=== PATIENT | male | born 1960 | race Caucasian/White ===

== ENCOUNTER 2018-01-16 17:03 | Inpatient (IN) | payer MEDICARE ==
[~2018-01-16] VITALS: Ht 182.9 cm; Wt 91.6 kg
[2018-01-16] MEDS ORDERED: TEMAZEPAM 7.5 MG CAPSULE PO PRN (17:30)
[2018-01-16] MEDS ORDERED: ACETAMINOPHEN 325 MG TABLET PO PRN (17:30)
[2018-01-16] MEDS ORDERED: clonazePAM 0.5 MG TABLET PO PRN (17:30)
[2018-01-16] MEDS ORDERED: MAGNESIUM HYDROXIDE 30 ML UDC PO PRN (17:30)
[2018-01-16] MEDS ORDERED: MAG HYDROX/AL HYDROX/SIMETH 30 ML UDC PO PRN (17:30)
--- NOTE | 2018-01-16 18:00 | NUR ---
GPS/RN-NOTES ADMITTED 58 Y.O MALE PATIENT FROM THE [facility]. PATIENT ON 5150 HOLD FOR DTS/DTO UNDER THE CARE OF DR. MARIA AND DR. RAMIREZ. CHARGE NURSE MADE DR. MARIA AWARE OF PATIENT ADMISSION. PATIENT WAS UNABLE TO ASSES DUE TO PATIENT WAS TOO SEDATED ON ARRIVAL,BREATHING EVEN AND NONLABORED/NO ACUTE DISTRESS NOTED. CONTRABAND DONE,UNABLE TO DO BODY ASSESSMENT ON THE PATIENT. WILL ENDORSE TO INCOMING NURSE FOR CONTINUITY OF CARE AND THE ADMISSION PROCESS.NO FAMILY ON FILE TO BE NOTIFIED FOR THE ADMISSION.
--- NOTE | 2018-01-16 22:50 | NUR ---
PT REFUSED SKIN/BODY ASSESSMENT. PT STATES "I'M OKAY, I DON'T NEED TO BE CHECKED". WILL ENDORSE TO NEXT SHIFT NURSE OF PT'S REFUSAL.
[2018-01-17 08:22] VITALS: BP 129/76
--- NOTE | 2018-01-17 11:57 | NUR ---
GPS/RN-NOTES PATIENT REFUSED LAB DRAW,DESPITE EXPLAINING RISK AND BENEFITS. PATIENT GETS ANGRY AND ARGUMENTATIVE WITH THE LAB STAFF. X3 ATTEMPT
--- NOTE | 2018-01-17 14:21 | NUR ---
Initial Discharge Plan: Pts address on face sheet is [address] [place] [phone] and phone # is . Pt does not have an emergency personnel specialist on his face sheet, nor does he want anyone notified of his whereabouts. When asked about discharge plan, pt stated, "I want you to let me leave from here and its none of your business what I do." SW will continue to revisit discharge plan throughout pts stay at the hospital to assist pt in discharging appropriately and safely.
[2018-01-17 20:00] VITALS: BP 127/71
[2018-01-17] MEDS ORDERED: OLANZAPINE 5 MG/TAB.RAPDIS PO SCH (22:00)
[2018-01-18 08:00] VITALS: BP 136/92
[2018-01-18] MEDS ORDERED: OLANZAPINE 10 MG VIAL IM ONE (11:00)
[2018-01-18] MEDS ORDERED: LORAZEPAM INJ 2 MG/ML VIAL IM ONE (11:00)
--- NOTE | 2018-01-18 11:00 | NUR ---
GPS/RN-NOTES PATIENT WALK IN THE NURSING STATION SCREAMING AND YELLING WITH THE MD (PSYCHIATRIST) AND STAFF STATED" YOU ARE ALL CRIMINALS, I"M GOING [facility]". UNABLE TO REDIRECT. CALLED JENN SUBRAMANIAN. MD ORDERED IM MEDICATIONS.
--- NOTE | 2018-01-18 11:03 | NUR ---
PT. IS HIGHLY AGITATED, AGGRESSIVE, SCREAMING AND YELLING, VERBALLY ABUSIVE AND THREATENING STAFF. DR. SOUZA COVERING FOR DR. MARIA IN THE UNIT AND ORDERED ATIVAN 1 MG IMX1 AND ZYPREXA 10 MG IM X1.
[2018-01-18] MEDS ORDERED: OLANZAPINE 5 MG/TAB.RAPDIS PO SCH (17:00)
[2018-01-18] MEDS: OLANZAPINE 5 MG/TAB.RAPDIS PO SCH (17:30)
[2018-01-18 20:00] VITALS: BP 124/74
[2018-01-19] MEDS: OLANZAPINE 5 MG/TAB.RAPDIS PO SCH ×3 (08:54→17:00)
--- NOTE | 2018-01-19 09:51 | NUR ---
GPS RN NOTE: RECEIVED PATIENT IN HIS BED PT HYPERVERBAL NON COOPERATIVE REFUSED AM MEDICATIONS OFFERED X3 PT CONTINUE REFUSING, PT ISOLATIVE ARGUMENTIVE AND EASILY AGITATED, EASILY ANGRY BEHAVIOR.ALL NEEDS ATTENDED AND ANTICIPATED. WILL CONT.MONITORING Q15 MINS. FOR SAFETY AND BEHAVIOR.
--- NOTE | 2018-01-19 11:04 | NUR ---
GPS RN NOTE: PT WAS SEEN AND EXAMINE BY DR SOUZA PT AGREED TO TAKE MEDICATIONS ZYPREXA 10 MG WAS GIVEN AT THIS TIME WITH KLONOPIN 0.5 MG PRN FOR ANXIETY PER MD ORDER WILL CONTINUE MONITORING FOR SAFETY AND BEHAVIOR Q 15 MIN
[2018-01-19 16:08] VITALS: BP 115/65
[2018-01-19 19:50] VITALS: BP 126/79
--- NOTE | 2018-01-20 02:40 | NUR ---
GPS RN NOTES PT. REFUSED WEEKLY SKIN REASSESSMENT PICTURES , ENCOURAGED FOR SKIN REASSESSMENT ,EXPLIANED RISKS AND BENEFITS, PT. STILL REFUSED .
[2018-01-20 08:00] VITALS: BP 150/99
[2018-01-20] MEDS: OLANZAPINE 5 MG/TAB.RAPDIS PO SCH ×2 (08:52→16:11)
[2018-01-20] MEDS ORDERED: LORAZEPAM INJ 2 MG/ML VIAL IM STA (10:55)
[2018-01-20] MEDS ORDERED: OLANZAPINE 10 MG VIAL IM STA (10:55)
--- NOTE | 2018-01-20 11:10 | NUR ---
GPS RN NOTE: PT CAME TO NURSING STATION , AGGRESSIVE, SCREAMING AND YELLING, VERBALLY ABUSIVE AND THREATENING STAFF. AGITATED DR. MARIA NOTIFIED WITH ORDERED ATIVAN 1 MG IMX1 AND ZYPREXA 5MG IM X1. WILL CONTINUE MONITORING.
[2018-01-20 16:00] VITALS: BP 118/74
--- NOTE | 2018-01-20 19:30 | NUR ---
GPS RN NOTE, RECEIVED PATIENT AWAKE AND IN BED, NO S/S OR COMPLAINTS OF PAIN AT THIS TIME. PATIENT IS DISPLAYING NO S/S OF APPARENT DISTRESS AT THIS TIME. PATIENT BREATHING IS UNLABORED WITH EQUAL RISE AND FALL OF THE CHEST. PATIENT IS ALERT AND ORIENTED X 2 ON ROOM AIR WITH A SPO2 OF 98%. PATIENT IS COMPLIANT WITH MEDICATION, ANXIOUS, ISOLATIVE, EASILY AGITATED, ARGUMENTATIVE, AND NEEDS REORIENTATION. PATIENT DENIES SUICIDE IDEATIONS AND HOMICIDAL IDEATIONS AT THIS TIME. PATIENT ASSISTED WITH TURNING AND REPOSITIONING Q2HR AND PRN FOR COMFORT AND CIRCULATION. PATIENT HAS NO NEEDS AT THIS TIME. PATIENT EDUCATED ON THE USE OF THE CALL [place]. PATIENT SIDE RAILS ARE UP X 2, BED IS LOCKED AND LOW, AND I WILL CONTINUE TO MONITOR THIS PATIENT Q 15 MIN WITH THE HELP OF STAFF.
[2018-01-20 19:39] VITALS: BP 137/77
[2018-01-21 08:00] VITALS: BP 132/90
[2018-01-21] MEDS: OLANZAPINE 5 MG/TAB.RAPDIS PO SCH ×2 (08:26→16:32)
[2018-01-21] MEDS ORDERED: DIVALPROEX SODIUM 125 MG CAP.SPRINK PO SCH (14:00)
[2018-01-21] MEDS: DIVALPROEX SODIUM 125 MG CAP.SPRINK PO SCH ×2 (14:16→16:32)
--- NOTE | 2018-01-21 14:36 | NUR ---
Discharge Planning: SW spoke with patient regarding the discharge plan. Patient stated that he does not want a SNF placement and he does not wish to pay for board and care / assisted living / independent living. Patient stated that he wants to discharge out of the hospital and that he will find his own way. [place] SW asked if patient has any family to call. Patient stated that he does but he does not want SW to call anybody. Patient stated, 'I will speak to my own family. I don't want you to call.' Patient stated that he does not want to talk to SW any further about discharge planning. Patient stated that he 'feels safe' leaving the hospital and has 'no concerns.' Patient stated that he is not suicidal or homicidal. Patient states that he feels ready to leave the hospital. Please note that patient is alert and oriented. Patient is ambulatory.
[2018-01-21 16:00] VITALS: BP 126/76
[2018-01-21 19:59] VITALS: BP 119/74
[2018-01-22 08:00] VITALS: BP 122/74
[2018-01-22] MEDS: DIVALPROEX SODIUM 125 MG CAP.SPRINK PO SCH (08:53)
[2018-01-22] MEDS: OLANZAPINE 5 MG/TAB.RAPDIS PO SCH (08:56)
--- NOTE | 2018-01-22 09:33 | NUR ---
RN-CO: Dr Spangler gave an order to discontinue hold and discharge patient today. Dalia Paul NP medically cleared patient for discharge. In the unit patient is calm and cooperative to care. Compliant with his medications. Denied suicidal and homicidal ideation. Denied auditory and visual hallucination. He is alert and oriented x4, stable gait, continent, able to make decision of his own. Per patient he has no family to notify.He will sign a homeless waiver and will be given a bus token. He was referred to an [employer] [facility] in [facility] [phone], [address] [facility] [address]. Psychiatrist in [facility] [address].Prescription and all of his belongings will be given back to patient.
--- NOTE | 2018-01-22 10:24 | NUR ---
DISCHARGE NOTE: PATIENT LEFT THE UNIT AND ESCORTED OUT OF THE HOSPITAL AT 1015. CANDACE GAVE DISCHARGE ORDER, DISCONTINUED HOLD, AND GAVE PRESCRIPTION. LOURDES MADE AWARE OF DISCHARGE. PATIENT MEDICALLY STABLE. V/S STABLE. DENIES SI/HI AT DISCHARGE. PATIENT ALERT AND ORIENTED X 3/4. BELONGINGS GIVEN TO PATIENT AT DISCHARGE. SKIN ASSESSMENT DENIED BY PATIENT AT DISCHARGE. EXIT CARE PAPERS SIGNED AND INFORMATION PACKET GAVE AND EXPLAINED TO PATIENT. PATIENT SIGNED HOMELESS WAIVER AND GAVE PACKET OF RESOURCES BEFORE DISCHARGE.
--- NOTE | 2018-01-22 10:33 | NUR ---
Discharge Note: Patient will be discharged from the hospital today. Patient states that he does not want any resources and does not want to formulate a discharge plan. Patient states that he can take care of it himself. Patient declined resources and stated that he did not want SW to make any appointments for him. Patient stated that he did not want SW to contact any family members and did not provide contact information for them. Patient also declined bus tokens / taxi services. Although patient declined resources, SW provided him with a packet which included medical resources, mental health resources, shelters, substance abuse resources, food resources and so forth, PLEASE SEE ALL RESOURCES IN CHART. Patient was provided a resource to [facility] [address] [place] [address] to see an sports cartoonist [in addition to other medical resources *see chart]. Patient was provided resource to [place] [id number] [address] [in addition to other mental health resources *see chart]. Patient is calm during discharge. Patient denies suicidal and homicidal ideation. Patient denies visual and auditory hallucinations. Patient is alert and oriented. Patient is ambulatory and does not require walker / walking assistance.
== END 2018-01-22 10:15 | disposition home or self-care (01) | DRG 885 ==
LOC: GPS 17:04 → EDBD 17:04 → GPS 17:24
PROVIDERS: ADMIT Psychiatry & Neurology Psychiatry; ATTEND Psychiatry & Neurology Psychiatry
DX: F25.9 Schizoaffective disorder, unspecified (principal); F29 Unspecified psychosis not due to a substance or known physiological condition; F19.19 Other psychoactive substance abuse with unspecified psychoactive substance-induced disorder; F39 Unspecified mood [affective] disorder; F41.9 Anxiety disorder, unspecified
CPT/HCPCS: J2060; J3490